=== PATIENT | male | born 1965 | race African-American/Black ===

== ENCOUNTER 2018-09-19 16:59 | Emergency (ER) | payer SELFPAY ==
[2018-09-19 17:43] LABS: #Eosinphils 0.4 thou/uL (0.0-0.7); #Lymphocytes 1.3 thou/uL (1.20-3.40); #Monocytes 0.3 thou/uL (0.11-0.59); #Neutrophils 2.1 thou/uL (1.40-6.50); %Basophils 0.6 % (0.0-1.0); %Eosinophils 8.7 % (0.0-10.0); %Lymphocytes 31.9 % (21.0-51.0); %Monocytes 7.6 % (0.0-10.0); %Neutrophils 51.1 % (42.0-75.0); Hemoglobin 13.5 g/dL (14.0-18.0); Mean Corpuscular HGB CONC 34.2 g/dL (32.0-36.0); Mean Corpuscular Hemoglobin 34.2 pg (27.0-31.0); Mean Platelet Volume 6.9 fL (7.4-10.4); Platelet Count 275 thou/uL (130-400); RBC Distribution Width 11.7 % (11.5-14.5); Red Blood Cell (RBC) Count 3.93 mill/uL (4.70-6.10); White Blood Cell (WBC) Count 4.2 thou/uL (4.8-10.8)
[2018-09-19 17:49] LABS: INR-International Normal Ratio 0.9; PTT 30.3 SEC (22.9-36.1); Prothrombin Time 12.2 SEC (12.0-14.7)
[2018-09-19 18:06] LABS: Acetaminophen Less than 6.0 mcg/mL (10.0-30.0); Alcohol 155 mg/dL (Less than 10); Salicylate Less than 8.0 mg/dL (15.0-30.0)
[2018-09-19 18:07] LABS: ALT (SGPT) 43 U/L (8-55); AST (SGOT) 39 U/L (5-34); Albumin 3.9 g/dL (3.5-5.0); Alkaline Phosphatase 83 U/L (40-150); Anion Gap 12 mmol/L (10-20); BUN (Urea Nitrogen) 7 mg/dL (8.4-25.7); Bilirubin, Total 0.4 mg/dL (0.2-1.2); Calc. Creatinine Clearance 0 mL/min (70-130); Calcium 9.1 mg/dL (7.8-10.44); Carbon Dioxide 26 mmol/L (22-29); Chloride 108 mmol/L (98-107); Estimated GFR-MDRD Greater than 90; Globulin 3.2 g/dL (2.4-3.5); Glucose 112 mg/dL (70-105); Potassium 3.7 mmol/L (3.5-5.1); Protein, Total 7.1 g/dL (6.0-8.3); Sodium 142 mmol/L (136-145)
[2018-09-19 18:34] LABS: Bilirubin Negative (Negative); Blood, Urine Negative (Negative); Clarity CLEAR (Clear); Glucose, Urine (Dipstick) Negative (Negative); Leukocyte Negative (Negative); Nitrite Negative (Negative); Protein, Urine (Dipstick) Negative (Neg-Trace); Specific Gravity, Urine 1.003 (1.002-1.036); Urobilinogen 0.2 mg/dL (0.2-1.0); pH, Urine 5.5 (5.0-9.0)
[2018-09-19 18:44] LABS: Amphetamine Not Detected (NotDetected); Barbiturates Screen Not Detected (NotDetected); Benzodiazepine Screen Detected (NotDetected); Cocaine Metabolite Screen Not Detected (NotDetected); Medtox Control Line Valid? VALID (VALID); Medtox Reader # READER 1; Methadone Not Detected (NotDetected); Methamphetamine Not Detected (NotDetected); Opiate Screen Not Detected (NotDetected); Oxycodone Screen Not Detected (NotDetected); Phencyclidine (PCP) Not Detected (NotDetected); THC/Cannabinoid Screen Not Detected (NotDetected); Tricyclic Screen Not Detected (NotDetected)
--- NOTE | 2018-09-19 19:32 | CT ---
CT BRAIN 09/19/18 PROVIDED CLINICAL HISTORY: Fall with head injury. FINDINGS: Comparison 05/16/15. The ventricular system appears normal in size and morphology. There is no evidence for intracranial h emorrhage or mass effect. Chronic microvascular ischemic changes are seen involving the paraventricul ar white matter. Mucosal thickening and partial opacification of ethmoid air cells as well as mucosal thickening involving right maxillary sinus demonstrated. The extracranial soft tissues and osseous s tructures appear otherwise unremarkable. IMPRESSION: No evidence for intracranial hemorrhage or mass effect. POS: [facility]
--- NOTE | 2018-09-19 19:48 | CT ---
CT CERVICAL SPINE: 09/19/2018 PROVIDED CLINICAL HISTORY: Pain, status post fall. FINDINGS: There is no evidence for fracture or traumatic subluxation. Cervical degenerative changes are seen. No prevertebral soft tissue swelling is evident. The visualized lung apices appear clear. IMPRESSION: No evidence for fracture or traumatic subluxation. POS: [facility]
--- NOTE | 2018-09-19 20:03 | RAD ---
PORTABLE SUPINE CHEST: 09/19/2018 PROVIDED CLINICAL HISTORY: Cough. COMPARISON: FINDINGS: The cardiac and mediastinal silhouette is within normal limits for the portable supine technique. No focal consolidation is evident. Assessment for pleural fluid and pneumothorax is limited, given the supine nature of the study. IMPRESSION: No evidence for an acute cardiopulmonary process. POS: [facility]
--- NOTE | 2018-09-19 20:09 | RAD ---
LEFT HIP RADIOGRAPHS TWO VIEWS: 09/19/2018 PROVIDED CLINICAL HISTORY: Left hip pain, status post fall. FINDINGS: There is no evidence for fracture or other acute osseous abnormality. If there is persistent clinica l concern, conservative management and follow-up imaging are advised. IMPRESSION: As above. POS: [facility]
== END 2018-09-19 22:52 | disposition home or self-care (01) ==
LOC: ERS 16:59
DX: S70.02XA Contusion of left hip, initial encounter (principal); S00.81XA Abrasion of other part of head, initial encounter; F10.129 Alcohol abuse with intoxication, unspecified; F17.210 Nicotine dependence, cigarettes, uncomplicated; W18.30XA Fall on same level, unspecified, initial encounter
CPT/HCPCS: 36415; 70450; 71045; 72125; 80053; 80306; 80307; 81003; 82140; 85025; 85610; 85730; 96360